=== PATIENT | female | born 1975 | race African-American/Black ===

== ENCOUNTER 2019-08-29 18:56 | Emergency (ER) | payer SELFPAY ==
[~2019-08-29] VITALS: Ht 182.9 cm; Wt 163.3 kg
--- NOTE | 2019-08-29 19:10 | NUR ---
ED Nurse Note: PT WALKED IN TO ED C/O ABD PAIN 05/04, NBD SINCE YESTERDAY. PT STATES LMP WAS 2 MONTH AGO AND IS UNSURE IF SHE IS . PT HAS NO FEVER AND STATES RECENT TRAVEL FROM [place]. [place] AT BEDSIDE. WILL CONTINUE TO MONITOR PATIENT.
--- NOTE | 2019-08-29 19:15 | NUR ---
ED Nurse Note: IV ESTABLISHED ON LEFT AC WITH 20G. BLOOD DRAWN AND SENT TO LAB WITH URINE. LINE PATENT AND INTACT.
[2019-08-29 19:57] VITALS: BP 104/60
[2019-08-29 19:57] LABS: APPEARANCE,URINE CLEAR; BILIRUBIN, URINE NEGATIVE (NEGATIVE); COLOR,URINE PALE YELLOW; GLUCOSE, URINE (UA) NEGATIVE (NEGATIVE); KETONES,URINE NEGATIVE (NEGATIVE); LEUKOCYTE ESTERASE ,URINE NEGATIVE (NEGATIVE); NITRITE,URINE NEGATIVE (NEGATIVE); PH,URINE 6 (4.5-8.0); PROTEIN,URINE NEGATIVE (NEGATIVE); UROBILINOGEN,URINE NORMAL MG/DL (0.0-1.0)
[2019-08-29 20:05] LABS: ANION GAP 6 mmol/L (5-15); BLOOD UREA NITROGEN 8 mg/dL (7-18); CALCIUM 8.5 MG/DL (8.5-10.1); CARBON DIOXIDE 29 MMOL/L (21-32); CHLORIDE 101 MMOL/L (98-107); CREATININE 0.8 MG/DL (0.55-1.30); POTASSIUM 3.6 MMOL/L (3.5-5.1); SODIUM 136 MMOL/L (136-145)
[2019-08-29 20:10] LABS: ALANINE AMINOTRANSFERASE 21 U/L (12-78); ALBUMIN 3.1 G/DL (3.4-5.0); ALBUMIN/GLOBULIN RATIO 0.7 (1.0-2.7); ALKALINE PHOSPHATASE 42 U/L (46-116); ASPARTATE AMINO TRANSFERASE 12 U/L (15-37); BILIRUBIN,TOTAL 0.3 MG/DL (0.2-1.0)
[2019-08-29 20:13] LABS: BASOPHILS % (AUTO) 1.1 % (0.0-2.0); EOSINOPHILS % (AUTO) 1.5 % (0.0-3.0); HEMATOCRIT 35.2 % (37.0-47.0); HEMOGLOBIN 10.4 G/DL (12.0-16.0); LYMPHOCYTES % (AUTO) 24.1 % (20.0-45.0); MEAN CORPUSCULAR VOLUME 73 FL (80-99); MONOCYTES % (AUTO) 8.5 % (1.0-10.0); NEUTROPHILS % (AUTO) 64.8 % (45.0-75.0); PLATELET COUNT 261 K/UL (150-450); RED BLOOD COUNT 4.84 M/UL (4.20-5.40); RED CELL DISTRIBUTION WIDTH 14.2 % (11.6-14.8); WHITE BLOOD COUNT 8.3 K/UL (4.8-10.8)
--- NOTE | 2019-08-29 20:14 | NUR ---
ED Nurse Note: PT WENT FOR US VIA WALKING ACCOMPANIED BY TECH IN STABLE CONDITION
--- NOTE | 2019-08-29 21:03 | Emergency Room Report ---
History of Present Illness General Chief Complaint: Abdominal Pain Source: Patient Present Illness HPI 44-year-old female who is morbidly obese here complaining of 1 day of generalized abdominal pain rating a 10 out of 10 with few bouts of nonbloody emesis and nonbloody diarrhea. Reports that symptoms started after she came back from [place]. Denies any alcohol intake, tobacco use however admits of daily use of marijuana. Also reports that she has not had a period in the past 2 months and is wondering if she is . Has not taken in home . Denies any vaginal discharge, bleeding, clotting, or spotting. Reports that she is G5, . If she is this is going to be her sixth . Denies fever and chills at this time however reports that few days ago she was feeling feverish. Denies cough and congestion, sore throat. Has not taken medication for symptom relief. Appears to be stable with stable vital signs. Allergies: Coded Allergies: No Known Allergies (Unverified , 08/29/19) Patient History Past Medical History: see triage record Past Surgical History: none Pertinent Family History: none Social History: Reports: drug use - marijuana Last Menstrual Period: 06/05/20 Immunizations: UTD Reviewed Nursing Documentation: PMH: Agreed; PSxH: Agreed Nursing Documentation-PMH Past Medical History: No Stated History Review of Systems All Other Systems: negative except mentioned in HPI Physical Exam Vital Signs Date Time Temp Pulse Resp B/P (MAP) Pulse Ox O2 Delivery O2 Flow Rate FiO2 08/29/19 19:07 98.1 68 20 110/60 (77) 99 Room Air Sp02 EP Interpretation: reviewed, normal General Appearance: alert, non-toxic, mild distress, obese Head: normocephalic, atraumatic Eyes: bilateral eye normal inspection, bilateral eye PERRL ENT: hearing grossly normal, normal pharynx, no angioedema, normal voice Neck: full range of motion, supple, thyroid normal, no meningismus, no bony tend, supple/symm/no masses Respiratory: chest non-tender, lungs clear, normal breath sounds, no rhonchi, no respiratory distress, no retraction, no accessory muscle use, no wheezing, speaking full sentences Cardiovascular #1: regular rate, rhythm, no edema, no murmur, normal capillary refill Cardiovascular #2: 2+ carotid (R), 2+ carotid (L), 2+ radial (R), 2+ radial (L) Gastrointestinal: non tender, no mass, no organomegaly, no peritonitis, no bruit, no guarding, no hernia, no pulsatile mass, no rebound Rectal: deferred Genitourinary: no CVA tenderness Musculoskeletal: back normal, normal range of motion, digits/nails normal, no calf tenderness, pelvis stable Neurologic: alert, motor strength/tone normal, oriented x3, sensory intact, responsive, speech normal Psychiatric: judgement/insight normal, memory normal, mood/affect normal, no suicidal/homicidal ideation Skin: no rash, palpation normal, normal color Lymphatic: no adenopathy Medical Decision Making PA Attestation All my diagnosis and treatment plans were reviewed ad discussed with my supervising physician Dr. Callaway Diagnostic Impression: Primary Impression: Abdominal pain during intrauterine Additional Impression: Acute diarrhea ER Course 44-year-old female who is morbidly obese here complaining of 1 day of generalized abdominal pain rating a 10 out of 10 with few bouts of nonbloody emesis and nonbloody diarrhea. Reports that symptoms started after she came back from [place]. Denies any alcohol intake, tobacco use however admits of daily use of marijuana. Also reports that she has not had a period in the past 2 months and is wondering if she is . Has not taken in home . Denies any vaginal discharge, bleeding, clotting, or spotting. Reports that she is G5, . If she is this is going to be her sixth . Denies fever and chills at this time however reports that few days ago she was feeling feverish. Denies cough and congestion, sore throat. Has not taken medication for symptom relief. Appears to be stable with stable vital signs. Ddx considered but are not limited to: appendicitis, cholecystis, gastritis, gastroenteritis, UTI, pyelonephritis, ectopic , abdominal pain during , selective versus threatened Vital signs: are WNL, pt. is afebrile H&PE are most consistent with: Abdominal pain during , acute diarrhea ORDERS: CBC, CMP, UA, urine tox screen, urine test, beta-hCG, type and screen, OB ultrasound, famotidine, diclegis , dicyclomine ED INTERVENTIONS: NS bolus, Zofran, Pepcid DISCHARGE: At this time pt. is stable for d/c to home. Will provide printed patient care instructions, and any necessary prescriptions. Care plan and follow up instructions have been discussed with the patient prior to discharge. Patient has not shocked and found out that she is , advised patient to follow-up with TOLL SETTLEMENT CLERK in 24 to 48 hours for repeat of test and ultrasound. At this time gestational sac is observed however no IUP is seen due to early in , no heart rate detected due to early . Beta-hCG levels correspond with a number of weeks of . Advised patient return to emergency room if increased abdominal pain, vaginal bleeding or spotting. Patient diarrhea and multiple bouts of emesis are most likely secondary to combination of her as well as recent travel to [place] in which she had consumed. Advised patient to increase oral hydration take medication as directed. Patient take Tylenol for pain as well as avoid marijuana use and other smoking or alcohol intake EKG Diagnostic Results Rate: normal Rhythm: NSR ST Segments: no acute changes Other Impression No acute ST changes CT/MRI/US Diagnostic Results CT/MRI/US Diagnostic Results : Imaging Test Ordered: OB ultrasound Impression There is a single intrauterine gestational sac with average diameter around 2.5 cm. There is a questionable small yolk sac visualized. No pole is visualized. This may be due to the early gestational age. Recommend continued follow-up with beta hCG and/or ultrasound. Last Vital Signs Date Time Temp Pulse Resp B/P (MAP) Pulse Ox O2 Delivery O2 Flow Rate FiO2 08/29/19 19:57 65 20 Room Air 08/29/19 19:57 98.5 104/60 99 Status: improved Disposition: HOME, SELF-CARE Condition: Stable Scripts Dicyclomine Hcl* (DICYCLOMINE HCL*) 10 Mg Capsule 10 MG ORAL TID, #10 CAP Prov: ChelaelimoghavaArmando hui PA 08/29/19 Famotidine* (Pepcid 20mg tablet*) 20 Mg Tablet 20 MG ORAL DAILY, #15 TAB 0 Refills Prov: JulimogArmando veronica PA 08/29/19 Doxylamine/Pyridoxine Hcl (CHARLOTTE HIGHTOWER 10-10 MG TABLET) 1 Each Tablet. 1 EACH PO TID, #21 TAB Prov: Armando Enriquez PA 08/29/19 No.137/Iron/Folic Acd ( Vitamin Tablet) 1 Each Tablet 1 EACH PO DAILY for 30 Days, #30 TAB Prov: Armando Enriquez 08/29/19 Patient Instructions: Abdominal Pain During , Diarrhea, Adult, Easy-to -Read Additional Instructions: Take medication as directed, follow-up with your primary care provider, increase oral hydration, you need to be seen by TOLL SETTLEMENT CLERK. Start your vitamins. If worsening symptoms, worsening abdominal pain, vaginal bleeding or spotting return to the emergency room. Avoid drinking alcohol and marijuana use. Avoid smoking tobacco. Advised patient to take Tylenol Armando Enriquez Aug 29, 2019 21:03
[2019-08-29] MEDS ORDERED: DICLEGIS DR 101 EACH PO (21:04)
[2019-08-29] MEDS ORDERED: DICYCLOMINE HCL10 MG ORAL (21:04)
[2019-08-29] MEDS ORDERED: FAMOTIDINE20 MG ORAL (21:04)
[2019-08-29] MEDS ORDERED: PRENATAL VITAM1 EA10 PO (21:04)
[2019-08-29 21:15] VITALS: BP 115/65
--- NOTE | 2019-08-29 21:15 | NUR ---
ER DISCHARGE NOTE: Patient is cleared to be discharged per ERMD, pt is aox4, on room air, with stable vital signs. pt was given dc and prescription instructions, pt was able to verbalize understanding, pt id band and iv site removed without complications. pt is able to ambulate with steady gait. pt took all belongings.
--- NOTE | 2019-08-29 21:28 | Diagnostic Imaging Report ---
Indication: Pelvic pain Technique: Grayscale and duplex Doppler imaging of the pelvis performed utilizing a transabdominal scan and endovaginal scan. Comparison: None Findings: Exam is limited due to patient's large body habitus. Enlarged anteverted uterus noted. A ovoid cystic focus noted in the central part of the uterus which may represent a gestational sac. However the findings are not definitive. There is no identification of a pole or yolk sac. By single sac diameter measurement of 2.6 mm on endovaginal scanning, the gestational age is 6 weeks 6 days +/- 2 days. An intrauterine should be seen by this time such as identification of a yolk sac. The findings are therefore probably abnormal. Most likely consideration is a spontaneous incomplete . Differential diagnosis includes anembryonic and pseudogestational sac. Ectopic is not excludable. Positive signs of ectopic are not visualized such as evidence of free fluid or hemoperitoneum or an adnexal mass. However the study is limited because of body habitus. Given the early age of the , would also consider the possibility of a normal early IUP especially given that the sac diameter was only measured in one projection (not ideal) rather than as a mean sac diameter, which would be much more accurate. Neither ovary is identified. IMPRESSION: 2.6 mm gestational sac. This is nonspecific. Considerations include normal early IUP, missed spontaneous , pseudogestational sac. Correlation with serial quantitative beta hCG recommended. Follow-up ultrasound recommended. Ectopic is not excluded. Nonidentification of the ovaries. Limited evaluation due to large body habitus.
== END 2019-08-29 21:15 | disposition home or self-care (01) ==
LOC: EMR 19:15
DX: O26.91 Pregnancy related conditions, unspecified, first trimester (principal); R10.9 Unspecified abdominal pain; R19.7 Diarrhea, unspecified; Z3A.00 Weeks of gestation of pregnancy not specified; F12.90 Cannabis use, unspecified, uncomplicated; O99.211 Obesity complicating pregnancy, first trimester; E66.01 Morbid (severe) obesity due to excess calories
CPT/HCPCS: 36415; 76801; 76830; 80053; 80307; 81003; 81025; 84484; 84702; 85025; 86850; 86900; 86901; 93005; 96361; 96374; 96375; 99284; J2405; J7030; S0028

== ENCOUNTER 2020-06-01 00:45 | Emergency (ER) | payer OTHER, MEDICAID ==
[~2020-06-01] VITALS: Ht 182.9 cm; Wt 163.3 kg
[~2020-06-01 00:45] MED LIST: DICLEGIS DR 101 EACH PO; DICYCLOMINE HCL10 MG ORAL; FAMOTIDINE20 MG ORAL; PRENATAL VITAM1 EA10 PO
--- NOTE | 2020-06-01 01:10 | NUR ---
ED Nurse Note: Recieved pt walk in from home, here with c/o vaginal irritation with white discharge for past n3-4 days, denies fevers, nausea or vomting or any other complaints or discomforts, urien smple collected and sent, pt also has c/o dysuria at 10/10 when urinating and 8/10 constantly.
[2020-06-01 01:13] LABS: APPEARANCE,URINE CLOUDY; BILIRUBIN, URINE NEGATIVE (NEGATIVE); COLOR,URINE PALE YELLOW; GLUCOSE, URINE (UA) NEGATIVE (NEGATIVE); KETONES,URINE NEGATIVE (NEGATIVE); LEUKOCYTE ESTERASE ,URINE 2+ (NEGATIVE); NITRITE,URINE NEGATIVE (NEGATIVE); PH,URINE 5 (4.5-8.0); PROTEIN,URINE 2+ (NEGATIVE); UROBILINOGEN,URINE NORMAL MG/DL (0.0-1.0)
--- NOTE | 2020-06-01 01:50 | NUR ---
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
[2020-06-01] MEDS ORDERED: Azithromycin 250mg tab ORAL ONE (02:00)
[2020-06-01] MEDS ORDERED: Lidocaine 1% MPF 10mg/ml 5ml INJ ONE (02:00)
[2020-06-01] MEDS ORDERED: oxyCODONE HCL/Acetaminophen 5/325mg ORAL ONE (02:00)
--- NOTE | 2020-06-01 02:05 | Emergency Room Report ---
History of Present Illness General Chief Complaint: Female Urogenital Problems Source: Patient Present Illness HPI This is a 44-year-old female with no past medical history. She presents with chief complaint of pelvic pain and discharge. Onset for last 3 days. She said there is a lump and swelling in that area. She thought she has yeast infection so she put in some cream. Is not helping. She also has dysuria and frequency. Also very clearish whitish discharge prior to the treatment. No fever chills. Is sexually active with one partner. Unprotected sex however. No history of STD. Denies any other complaint. Pain is 9 out of 10. Worse with urination. Better with rest. Allergies: Coded Allergies: No Known Allergies (Unverified , 08/29/19) COVID-19 Screening Contact w/high risk pt: No Experienced COVID-19 symptoms?: No COVID-19 Testing performed PANEL COVERER: No Patient History Past Medical History: see triage record, old chart reviewed Past Surgical History: none Pertinent Family History: none Social History: Denies: smoking Now: No Immunizations: other Reviewed Nursing Documentation: PMH: Agreed; PSxH: Agreed Nursing Documentation-PMH Past Medical History: No Stated History Review of Systems Eye: Denies: eye pain, blurred vision ENT: Denies: ear pain, nose congestion, throat swelling Respiratory: Denies: cough, shortness of breath Cardiovascular: Denies: chest pain, palpitations Gastrointestinal: Denies: abdominal pain, diarrhea, nausea, vomiting Genitourinary: Reports: discharge, dysuria, frequency, pain, vag bleed/dc Musculoskeletal: Denies: back pain, joint pain Skin: Denies: rash Neurological: Denies: headache, numbness Endocrine: Denies: increased thirst, increased urine Hematologic/Lymphatic: Denies: easy bruising All Other Systems: negative except mentioned in HPI Physical Exam Vital Signs Date Time Temp Pulse Resp B/P (MAP) Pulse Ox O2 Delivery O2 Flow Rate FiO2 06/01/20 00:51 97.9 69 18 111/71 (84) 99 Room Air Vitals normal Sp02 EP Interpretation: reviewed, normal General Appearance: well appearing, no apparent distress, alert Head: normocephalic, atraumatic Eyes: bilateral eye PERRL, bilateral eye EOMI ENT: hearing grossly normal, normal pharynx Neck: full range of motion, supple, no meningismus Respiratory: chest non-tender, lungs clear, normal breath sounds Cardiovascular #1: regular rate, rhythm, no murmur Gastrointestinal: normal bowel sounds, non tender, no mass, no organomegaly, no bruit, non-distended Genitourinary: other - Pelvic exam done with female nurse as cloth drier. External exam normal. Internal exam showed copious amount of whitish material. This is the yeast cream that she placed. She has edema of the vaginal tissue near the clitoris area. No obvious Bartholin cyst. Musculoskeletal: back normal, normal range of motion, gait/station normal Psychiatric: mood/affect normal Medical Decision Making Diagnostic Impression: Primary Impression: Acute cervicitis Additional Impression: UTI (urinary tract infection) Qualified Codes: N30.00 - Acute cystitis without hematuria ER Course This patient presents with acute cervicitis and UTI. Swelling concerning for possible herpes but patient did not have any vesicular lesion. Exam is also limited because of the copious amount of antiyeast medication that she placed inside her. I see no obvious Bartholin gland abscess. Will discharge home. No evidence of ectopic. Last Vital Signs Date Time Temp Pulse Resp B/P (MAP) Pulse Ox O2 Delivery O2 Flow Rate FiO2 06/01/20 00:51 97.9 69 18 111/71 (84) 99 Room Air Status: improved Disposition: HOME, SELF-CARE Condition: Stable Scripts Hydrocodone/Acetaminophen 5-325* (HYDROCODONE/ACETAMINOPHEN 5-325*) 1 Each Tablet 1 TAB ORAL Q6H PRN for For Pain, #20 TAB 0 Refills Prov: Rahul Sky MD 06/01/20 Doxycycline Monohydrate* (DOXYCYCLINE MONOHYDRATE*) 100 Mg Capsule 100 MG ORAL Q12H, #14 CAP 0 Refills Prov: Rahul Sky MD 06/01/20 Referrals: NOT CHOSEN [facility]/,REFERRING (PCP) Additional Instructions: Hold off on any yeast medication. Follow-up with In 7 days. You will need to see your front window cashier for pelvic exam and Pap smear. Return if symptoms worsen. Rahul Sky MD Jun 01, 2020 02:05
[2020-06-01] MEDS ORDERED: metroNIDAZOLE 500mg tab ORAL ONE (02:15)
[2020-06-01 02:20] VITALS: BP 126/79
[2020-06-01] MEDS ORDERED: HYDROCODON-ACE1 EA15 ORAL (02:30)
[2020-06-01] MEDS ORDERED: DOXYCYCLINE MO100 MG ORAL (02:30)
[2020-06-01 02:40] VITALS: BP 111/71
--- NOTE | 2020-06-01 02:40 | NUR ---
ER DISCHARGE NOTE: Patient is cleared to be discharged per ERMD, pt is aox4, on room air, with stable vital signs. pt was given dc and prescription instructions, pt was able to verbalize understanding, pt id band removed without complications. pt is able to ambulate with steady gait. pt took all belongings. meds given effective weith pain level decreased to 4/10, pt has family to drive her.
== END 2020-06-01 02:45 | disposition home or self-care (01) ==
LOC: EMR 00:58
DX: N72 Inflammatory disease of cervix uteri (principal); N30.00 Acute cystitis without hematuria
CPT/HCPCS: 81003; 81025; 87086; 87181; 87210; 96372; 99283; J0696